=== PATIENT | male | born 1985 | race Caucasian/White ===

== ENCOUNTER 2019-02-14 17:42 | Emergency (ER) | payer OTHER ==
[~2019-02-14] VITALS: Ht 193 cm; Wt 90.7 kg
[~2019-02-14 17:42] MED LIST: ZOFRAN4 MG PO
[2019-02-14] MEDS ORDERED: ANAPROX DS550 MG PO (19:37)
== END 2019-02-14 20:03 | disposition home or self-care (01) ==
LOC: ED 17:42
DX: R20.2 Paresthesia of skin (principal); M54.2 Cervicalgia; F17.200 Nicotine dependence, unspecified, uncomplicated

== ENCOUNTER 2019-02-16 23:04 | Emergency (ER) | payer OTHER ==
[~2019-02-16] VITALS: Wt 90.7 kg
[~2019-02-16 23:04] MED LIST changes: +ANAPROX DS550 MG PO
[2019-02-17 00:06] LABS: BASO % 0.5 % (0.0-1.0); HEMATOCRIT 41.8 % (42.0-52.0); HEMOGLOBIN 14.3 g/dl (14.0-18.0); LYMPH % 24.7 % (27.0-41.0); MEAN CELL VOLUME 86.7 fl (80.0-94.0); MEAN CORPUSCULAR HGB 29.7 pg (27.0-31.0); MEAN CORPUSCULAR HGB CONC 34.2 g/dl (33.0-37.0); MEAN PLATELET VOLUME 11.5 fl (9.6-12.3); MONO # 0.5 10*3/uL (0.1-1.0); MONO % 13.1 % (3.0-9.0); NEUT # 2.5 10*3/uL (2.3-7.9); NEUT % 60.5 % (47.0-73.0); PLATELET COUNT AUTOMATED 145 10*3/uL (130-400); RED BLOOD COUNT 4.82 10*6/uL (4.50-5.90); RED CELL DISTRI WIDTH 11.6 % (0-14.5); WHITE BLOOD COUNT 4.1 10*3/uL (4.8-10.8)
[2019-02-17 00:19] LABS: INTERNATIONAL NORM RATIO 0.9 (2.0-3.5)
[2019-02-17 00:24] LABS: ALBUMIN 3.7 gm/dl (3.1-4.5); ALKALINE PHOSPHATASE 98 U/L (45-117); BUN 13 mg/dl (7-24); CHLORIDE 104 mmol/L (98-107); POTASSIUM 3.8 mmol/L (3.5-5.1); SGOT/AST 22 IU/L (3-35); SGPT/ALT 48 U/L (12-78); SODIUM 136 mmol/L (136-145)
[2019-02-17 00:25] LABS: TROPONIN I < 0.015 ng/ml (<0.045)
[2019-02-17 00:58] LABS: URINE AMPHETAMINES < 1000 (1000ng/ml); URINE BARBITURATES < 200 (200ng/ml); URINE BENZODIAZEPINES < 200 (200ng/ml); URINE CANNABINOIDS (THC) < 50 (50ng/ml); URINE COCAINE < 300 (300ng/ml); URINE METHADONE < 300 (300ng/ml); URINE OPIATES < 300 (300ng/ml)
[2019-02-17 00:59] LABS: URINE PHENCYCLIDINE < 25 (25ng/ml)
== END 2019-02-17 03:52 | disposition short-term general hospital (02) ==
LOC: ED 23:04
PROVIDERS: Emergency Medicine
DX: R20.0 Anesthesia of skin (principal); R22.0 Localized swelling, mass and lump, head; F17.200 Nicotine dependence, unspecified, uncomplicated; Z79.899 Other long term (current) drug therapy